=== PATIENT | male | born 1970 | race Caucasian/White ===

== ENCOUNTER 2023-11-27 10:57 | Outpatient (CLI) | payer OTHER, SELFPAY ==
--- NOTE | 2023-11-27 11:41 | ECG_ITS ---
Measurements Intervals [place] Rate: 65 P: 13 MN: 183 QRS: -1 QRSD: 107 T: -6 QT: 400 QTc: 419 Interpretive Statements SINUS RHYTHM POSSIBLE INFERIOR MYOCARDIAL INFARCTION , OF INDETERMINATE AGE [30 ms Q WAVE IN II/aVF] ABNORMAL ECG NO PREVIOUS ECG AVAILABLE FOR COMPARISON Electronically Signed On 11-27-2023 11:55:28 COMMODITIES CLERK by Javier Rojas M.D.
[2023-11-27 11:51] LABS: Hematocrit 38.1 % (42.0-52.0); Hemoglobin 12.6 g/dL (14.0-18.0)
[2023-11-27 12:00] LABS: Albumin Level 4.6 g/dL (3.5-5.1); Estimated Glomerular Filt Rate > 60; Glucose 95 mg/dL (65-110)
[2023-11-27 12:21] LABS: Urine Cotinine NEGATIVE
== END 2023-11-27 10:58 | disposition home or self-care (01) ==
PROVIDERS: Visit Provider Orthopaedic Surgery
DX: E78.5 Hyperlipidemia, unspecified (principal); M17.11 Unilateral primary osteoarthritis, right knee; I10 Essential (primary) hypertension; R94.31 Abnormal electrocardiogram [ECG] [EKG]
CPT/HCPCS: 80307; 82040; 82565; 82947; 85014; 85018; 93005

== ENCOUNTER 2024-02-05 09:55 | Outpatient (CLI) | payer OTHER, SELFPAY ==
[2024-02-05 11:48] LABS: Basophils Absolute Auto 0.1 K/mm3 (0.0-0.1); Basophils Percent Auto 0.5 % (0.2-1.2); Eosinophils Absolute Auto 0.2 K/mm3 (0-0.3); Eosinophils Percent Auto 2.2 % (0-4.4); Hemoglobin 13.5 g/dL (14.0-18.0); Immature Granulocyte Absolute 0.04 K/mm3 (0.00-0.031); Immature Granulocyte Percent A 0.4 % (0-0.5); Lymphocytes Percent Auto 10.9 % (18.3-44.2); Mean Corpuscular HGB Conc 32.9 g/dl (32-36); Mean Corpuscular Hemoglobin 29.7 pg (26-34); Mean Corpuscular Volume 90.1 fl (80-100); Mean Platelet Volume 9.8 fl (7.4-10.4); Monocytes Absolute Auto 0.7 K/mm3 (0.1-0.6); Monocytes Percent Auto 7.6 % (2.6-8.5); Neutrophils Absolute Auto 7.2 K/mm3 (1.3-6.7); Neutrophils Percent Auto 78.4 % (45.5-73.1); Platelet Count Result 256 k/mm3 (150-375); Red Blood Count 4.55 M/mm3 (4.6-6.20); Red Cell Distribution Width 15.8 % (11.5-14.5); White Blood Count 9.2 K/mm3 (4.5-10.0)
[2024-02-05 12:06] LABS: Urine Cotinine NEGATIVE
[2024-02-05 12:07] LABS: Anion Gap 7 mmol/L (4-12); Blood Urea Nitrogen 24 mg/dL (9-20); Carbon Dioxide 26 mmol/L (22-30); Chloride 105 mmol/L (98-107); Estimated Glomerular Filt Rate > 60; Glucose 116 mg/dL (65-110); Potassium 4.2 mmol/L (3.4-5.0); Sodium 138 mmol/L (137-145)
[2024-02-05 12:21] LABS: Hemoglobin A1C 5.7 % (<5.7)
[2024-02-05 12:57] LABS: MRSA (PCR) NOT DETECTED (NOT DETECTE)
== END 2024-02-05 09:56 | disposition home or self-care (01) ==
PROVIDERS: Anesthesiology; Visit Provider Orthopaedic Surgery
DX: M17.11 Unilateral primary osteoarthritis, right knee (principal); Z51.81 Encounter for therapeutic drug level monitoring; Z01.818 Encounter for other preprocedural examination
CPT/HCPCS: 36415; 80048; 80307; 82040; 83036; 85025; 87641

== ENCOUNTER 2024-03-05 01:03 | Day surgery (SDC) | payer OTHER, SELFPAY ==
[2024-02-05 10:38] VITALS: BP 128/74; PULSE 56; RESP 16; TEMP 37.1; O2SAT 98; BMI 32.3
--- NOTE | 2024-02-05 10:50 | PC.NURSE ---
Report to the Outpatient Waiting Room, entrance under the green pavilion located off [facility], at time __6:00AM on date __03/05/24 . Planned Procedure Time: __7:30AM . Time changes happen often and if your time is changed the preop area will call you the afternoon before. - You and your visitor will be asked to self-screen and do not enter if you have any COVID symptoms. - A mask is optional within the hospital at this time. Patients may have clear liquids (water, carbonated beverages, clear teas, apple juice) until 3 hours prior to surgery with a maximum of 20 ounces. - No food from midnight until time of surgery. Take the following medications with a SIP of water the morning of surgery: ___DULOXETINE, METOPROLOL, PREDNISONE. MAY TAKE TRAMADOL NEEDED FOR PAIN DO NOT STOP ANY OF YOUR OTHER PRESCRIPTION MEDICATIONS PRIOR TO SURGERY ?EXCEPT THE FOLLOWING Medications to discontinue per physician ____HOLD DICLOFENAC AND ALL VITAMINS/SUPPLEMENTS 7 DAYS PRE-OP PER DR RODRIGUEZ Date to take last dose 02/26/24 PT IS HOLDING METHOTREXATE AND TREMFYA 2 WEEKS BEFORE AND [address] RODRIGUEZ AND HIS ADJUNCT SPANISH INSTRUCTOR. Please no make-up, nail bhutanese, hairspray, perfume, deodorant, or body powder the day of surgery. No jewelry (including any body piercings) or valuables the day of surgery, leave them at home. Please take a shower or bath the night before, or the morning of, surgery with an antibacterial soap. Wear comfortable, loose fitting clothing. - Jewelry must be removed prior to entering the operating room. Rings and piercings that are not removed may be cut off. - The hospital will not accept responsibility for valuables. - Please leave all valuables, including medications, at home the day of surgery. If you are going home after surgery, a licensed delivery motorcycle driver must drive you home. - NO public transportation without another adult if you receive anesthesia. - We recommend that an adult stay with you for 24 hours following discharge. - We also recommend that you do not drive, make important decision, drink alcoholic beverages, or take any drugs that were not prescribed by your health care provider for at least 24 hours after your discharge time. Follow any additional instructions given to you from your surgeon. If you or anyone in your household have experienced Covid symptoms in the past week, please notify your surgeon or the nurse liaison at the phone number below for possible testing. Telephone instructions given to __PATIENT & WIFE and asked if any additional questions and then verbalized understanding. Patient advised to call surgeon office or pre surgery nurse liaison [phone] if any additional questions.
[2024-03-05] VITALS (14 sets, daily range): BP systolic 100–144; BP diastolic 60–89; PULSE 58–87; RESP 12–18; TEMP 36.6–37.2; O2SAT 92–100
--- NOTE | ~2024-03-05 | XR_ITS ---
EXAMINATION: [id number] DATE: 03/05/2024 11:45 INDICATION: Right total knee arthroplasty. Postop. TECHNIQUE: 2 views of right knee on 4 radiographs were obtained. COMPARISON: None. FINDINGS: There is a total right knee arthroplasty with patellar resurfacing in anatomic alignment. N o fracture. There is gas in the knee joint and soft tissues, consistent with recent surgery. A surgic al drain is noted. Loose bodies posterior to the knee may be in a Bustillo's cyst. IMPRESSION: 1. Total right knee arthroplasty in near-anatomic alignment. Reviewed, dictated and finalized at location A.
[2024-03-05] MEDS: LACTATED RINGERS 1,000 ML 30 ML IV CONT ×2 (06:31→11:05)
[2024-03-05] MEDS: ACETAMINOPHEN 500 MG TABLET 1000 MG PO (06:31)
[2024-03-05] MEDS: TRANEXAMIC ACID 1,000MG/ISO100 1,000 MG/100 ML BAG 200 MG IVPB (06:57)
--- NOTE | 2024-03-05 07:10 | WPDHPUPDATE1 ---
History and Physical Update Update Date/Time: 03/05/24 07:10 History and Physical has been reviewed, including an updated exam of the patient. There are NO changes in the patient's condition. Risks, benefits, and alternatives have been discussed and questions answered. Patient agrees to proceed with procedure.
[2024-03-05] MEDS: ceFAZolin 2 GM/D5W 50 ML 2 GM/50 ML BAG IVPB ×3 (07:29→23:54)
--- NOTE | 2024-03-05 07:31 | WPDANESEPPF ---
Anes - Initial Pre Proc Eval Procedure: Operation Date: 03/05/24 07:30 Proposed Procedures p Right Total Knee Arthroplasty - Bari Ye MD Date/Time: 03/05/24 07:31 Surgeon: Bari Ye MD Pre Op Diagnosis: primary oa right knee Patient Data Age: 53 Gender: M Height: 1.83 m Weight: 107.2 kg Last Vital Signs Temp 98.1 F 03/05/24 06:09 Pulse 58 L 03/05/24 06:09 Resp 18 03/05/24 06:09 BP 116/63 03/05/24 06:09 Pulse Ox 100 03/05/24 06:09 O2 Del Method Room Air 03/05/24 06:09 Allergies Allergy/AdvReac Type Severity Reaction Status Date / Time No Known Allergies Allergy Verified 03/05/24 06:00 Home Medications Medication Instructions Recorded Confirmed Type amlodipine 10 mg tablet 10 mg PO QPM 09/03/22 03/05/24 History cyclobenzaprine 10 mg tablet 10 mg PO HS 09/03/22 03/05/24 History duloxetine 60 mg capsule,delayed 60 mg PO QAM 09/03/22 03/05/24 History release (Cymbalta) ezetimibe 10 mg tablet 10 mg PO DAILY 09/03/22 03/05/24 History folic acid 1 mg tablet 1 mg PO DAILY 09/03/22 03/05/24 History gabapentin 300 mg capsule 600 mg PO HS 09/03/22 03/05/24 History guselkumab 100 mg/mL subcutaneous 100 mg subcut ONCE 09/03/22 03/05/24 History auto-injector (Tremfya) hydrochlorothiazide 25 mg tablet 25 mg PO QAM 09/03/22 03/05/24 History metoprolol succinate 50 mg 50 mg PO QAM 09/03/22 03/05/24 History tablet,extended release 24 hr tramadol 100 mg capsule 100 mg PO TID 09/03/22 03/05/24 History 24h,extended release(25-75) metoprolol succinate 25 mg 25 mg PO HS 11/27/23 03/05/24 History tablet,extended release 24 hr prednisone 5 mg tablet 5 mg PO QAM 11/27/23 03/05/24 History acetaminophen 500 mg tablet 1,000 mg PO Q6H PRN Pain 02/05/24 03/05/24 History colesevelam 3.75 gram oral powder 3.75 g PO DAILY 02/05/24 03/05/24 History packet diclofenac sodium 75 mg 75 mg PO BID 02/05/24 03/05/24 History tablet,delayed release methotrexate sodium 2.5 mg tablet 12.5 mg PO DIRECTED 02/05/24 03/05/24 History sulfasalazine 500 mg 1 g PO BID 02/05/24 03/05/24 History tablet,delayed release tramadol 50 mg tablet 100 mg PO TID 02/05/24 03/05/24 History aspirin 81 mg tablet,delayed 81 mg PO BID 14 days #28 tabs 03/05/24 Rx release oxycodone-acetaminophen 5 mg-325 1 - 2 tablet PO Q4-6H PRN pain #30 03/05/24 Rx mg tablet tabs Laboratory Tests 03/05/24 06:28 Blood Type A Positive Antibody Screen Pending Patient hx anesthesia problems: none Family hx anesthesia problems: none Results Review: All pre-operative results and documents have been reviewed as part of the pre-operative evaluation. [facility] Past Medical History Medical History Broken leg (~1996) Fatigue History of stress test Hyperlipemia Hypertension Kidney stone Sleep apnea Surgical History Surgical History H/O arthroscopy of left knee H/O arthroscopy of right knee (~2020) History of appendectomy (~1997) History of spinal surgery (~2021) L-3-L-4 Family History Family History Mother Cancer Father Cancer Social History Social History Smoking status: Never smoker Alcohol intake: never Substance use: never Do You Feel Safe in your Home?: Yes Lack of Transportation: No Lack of Food: Never True Current Housing: I Have Housing Concerned About Future Housing: No Difficulty Paying Gas/Electric Bills: No Difficulty Paying for Meds: No Currently Unemployed: No Education: High School Diploma/GED Difficulty w/ Childcare or Family Care: No Living arrangements: with family Additional living arrangements comments: Spiritual care concerns: No Anes - Eval Final PreProcedure Day
--- NOTE | 2024-03-05 07:38 | WPDANESPNB ---
Anes - Peripheral Nerve Block Date/Time: 03/05/24 07:38 I have discussed with the patient/family/POA the placement of a peripheral nerve block for post-operative pain management, including associated risks, benefits, complications, and side effects. Alternative methods of post-operative analgesia were detailed. Questions were solicited and answers provided to the satisfaction of the patient/family/POA. Time-Out: A pre-procedural Time-Out was completed immediately before starting the procedure and confirmed: Patient Identification, Site, Procedure, Patient Position and the Availability of Requisite Equipment. Clinical Indications: Acute post-operative pain management requested by the operative surgeon. Nerve Block Insertion Note Anes-nerve block: adductor canal right Patient position: supine Skin prep: chlorhexidine Needle: 22 gauge, stimulating, insulated echogenic needle. Needle length: 80 mm Technique: ultrasound Injectate: other (Bupiv 0.5% 15 mls. ) Observations: tolerated well Complications: none Procedure start time:: 720 Procedure end time:: 725
[2024-03-05] MEDS: SODIUM CHLORIDE 0.9% IV 37.7 ML, MORPHINE SULFATE INJ (*CRX) 2 MG, ROPivacaine HCL 1% 2... INFILTRATE (08:19)
--- NOTE | 2024-03-05 11:47 | W.PM.PROC2 ---
Procedure Note - Detailed Date of Procedure 03/05/24 Pre-op Diagnosis primary oa right knee Post-op Diagnosis Same Procedure Performed Total knee arthroplasty, right Surgeon Bari Ye MD Web Knitter Angelica Ely PA-C Anesthesia General and Regional (subsartorial block) Findings End-stage arthritis of the knee. History of rheumatoid arthritis. Severe varus deformity, subluxation, and medial tibial erosion required complex reconstruction. 10 mm medial tibial augment. 100 mm cemented stem on the tibia. The MCL was intact. Description of Procedure The patient was given a nerve block preoperatively, and then brought to the operating room. A general anesthetic was administered. The leg was prepped and draped in the usual sterile fashion. The limb was elevated and the tourniquet inflated to 300 mmHg during the procedure. A longitudinal incision was created along the medial border of the patella and patellar tendon, and a trivector approach to the knee was performed. No significant medial release was taken, in order to protect the medial soft tissue sleeve. The knee was then flexed. There were extensive osteophytes and proliferative synovitis changes. The synovium was rather stiff and there was some calcifications. Synovectomy was performed where necessary. The osteophytes were carefully removed. The femur was significantly deformed. Also the medial tibia was eroded has observed on the x-rays. The intramedullary guide was placed in the femoral canal. The distal femoral resection was then taken with the oscillating saw. The collateral ligaments were carefully protected. The tibia was carefully exposed. The intramedullary guide was introduced. Preliminary bone resection was taken. Two more mm was required. A 10 mm step cut was placed medially. The knee was balanced in extension. No further releases were were needed. The anterior cruciate ligament and meniscal remnants were removed. The posterior cruciate ligament was sacrificed. The patella was measured. Patellar resection was carried out with the oscillating saw. The femur was sized and rotation assessed using a combination of gap balancing, posterior referencing, and the AP axis. No changes from the standard 3 degree rotation and posterior referencing position were required. The 4 in 1 cutting block, and the box cut guide were used to finish the femoral cuts after equal gaps were assured. The osteophytes were carefully removed from the back of the knee. The knee was copiously irrigated with antibiotic solution periodically throughout the procedure. The meniscal remnants were removed. The spacer block was used to confirm equal flexion and extension gaps. The tibia was sized and broached. Central drilling for the stem was performed. The bony surfaces were prepared for cementing with pulsatile lavage. The real tibia, femur and patella components were cemented. Excess cement was carefully removed. Patellar tracking was carefully assessed. No additional releases were required. The wound was closed with #1 Vicryl suture, #1, 2-0, and 3-0 barbed suture followed by Steri-Strips. Due to the significant synovectomy, it was elected to place a deep drain. The [employer] bipolar device was used periodically throughout the procedure. Implants [employer] Triathlon knee system, Crosby base plate cemented tibia size 6, 10 mm medial augment. 100 mm cemented 12 mm diameter stem. Posterior cruciate stabilized cemented femoral component size 6 ,and an 9 mm posterior stabilized polyethylene insert. 35mm polyethylene patella component. Estimated Blood Loss 50 Drains No Pathology None sent Complications No immediate complications Condition Stable Disposition PACU [facility] Billing Surgery - Charge Forward: Surgery Billing
[2024-03-05] MEDS: fentaNYL CITRATE INJ (*CRX) 100 MCG/2 ML VIAL 25 MCG IV PUSH (12:10)
[2024-03-05] MEDS: ACETAMINOPHEN 325 MG TABLET 650 MG PO ×3 (12:47→23:53)
[2024-03-05] MEDS: SODIUM CHLORIDE 0.9% IV 1,000 ML 125 ML IV CONT (12:50)
--- NOTE | 2024-03-05 13:01 | ADMGEN ---
This patient, Boston Boyd, was admitted to 3 [facility] Surg Room 313-01. Patient/family oriented to hospital policies and general routines including ID bracelet, bed and alarms, visiting hours, pain management, procedures, bathroom and other care routines, personal items, smoking policy, room service/diet, and visiting hours. Information on how to activate the Rapid Response Team has been discussed. Patient/Family are encouraged to report perceived risks to care and to ask questions if they do not understand what they are told or what they should do.
[2024-03-05] MEDS: SENNA/DOCUSATE SODIUM TABLET 2 TAB PO (16:54)
[2024-03-05] MEDS: traMADol HCL (*CRX) 50 MG TABLET PO (17:01)
[2024-03-05] MEDS: amLODIPine BESYLATE 5 MG TABLET 10 MG PO (17:01)
[2024-03-05] MEDS: oxyCODONE/ACETAMINOPHEN (*CRX) 10-325 MG TABLET 1 TAB PO (18:46)
[2024-03-05] MEDS: FAMOTIDINE 20 MG TABLET PO (20:08)
[2024-03-05] MEDS: ASPIRIN 81 MG ENTERIC TABLET PO (20:08)
[2024-03-05] MEDS: METOPROLOL SUCCINATE EXT REL 25 MG TABCR PO (20:08)
[2024-03-05] MEDS: GABAPENTIN 300 MG CAPSULE 600 MG PO (20:14)
[2024-03-05] MEDS: CYCLOBENZAPRINE HCL 10 MG TABLET PO (20:14)
[2024-03-06] MEDS: oxyCODONE/ACETAMINOPHEN (*CRX) 5-325 MG TABLET 1 TABLET PO ×2 (00:27→06:46)
[2024-03-06 00:40] VITALS: BP 129/66; PULSE 64; RESP 16; TEMP 36.8; O2SAT 97
[2024-03-06] MEDS: ACETAMINOPHEN 325 MG TABLET 650 MG PO ×2 (05:16→12:41)
[2024-03-06 05:57] VITALS: BP 129/71; PULSE 59; RESP 16; TEMP 36.1; O2SAT 100
[2024-03-06 06:32] LABS: Anion Gap 4 mmol/L (4-12); Blood Urea Nitrogen 17 mg/dL (9-20); Calcium 8.8 mg/dL (8.4-10.2); Carbon Dioxide 30 mmol/L (22-30); Chloride 105 mmol/L (98-107); Estimated CRCL calculation 115 ml/min; Estimated Glomerular Filt Rate > 60; Glucose 123 mg/dL (65-110); Potassium 3.9 mmol/L (3.4-5.0); Sodium 139 mmol/L (137-145)
[2024-03-06 06:33] LABS: Basophils Percent Auto 0.3 % (0.2-1.2); Eosinophils Absolute Auto 0.1 K/mm3 (0-0.3); Eosinophils Percent Auto 0.5 % (0-4.4); Hematocrit 34.5 % (42.0-52.0); Hemoglobin 11.2 g/dL (14.0-18.0); Immature Granulocyte Absolute 0.06 K/mm3 (0.00-0.031); Immature Granulocyte Percent A 0.5 % (0-0.5); Lymphocytes Absolute Auto 1.58 K/mm3 (0.9-3.2); Lymphocytes Percent Auto 12.7 % (18.3-44.2); Mean Corpuscular HGB Conc 32.5 g/dl (32-36); Mean Corpuscular Volume 92.5 fl (80-100); Mean Platelet Volume 10.4 fl (7.4-10.4); Monocytes Absolute Auto 1.6 K/mm3 (0.1-0.6); Monocytes Percent Auto 12.5 % (2.6-8.5); Neutrophils Absolute Auto 9.1 K/mm3 (1.3-6.7); Neutrophils Percent Auto 73.5 % (45.5-73.1); Platelet Count Result 215 k/mm3 (150-375); Red Blood Count 3.73 M/mm3 (4.6-6.20); White Blood Count 12.4 K/mm3 (4.5-10.0)
--- NOTE | 2024-03-06 09:05 | PM.DS ---
DS: Admitting Diagnosis Discharge Date 03/06/24 Admitting Diagnosis Right knee arthritis. DS: Discharge Diagnosis Discharge Diagnosis (1) Status post total right knee replacement: Code(s): Z96.651 - Presence of right artificial knee joint Status: Acute (2) Orthopedic aftercare for joint replacement: Code(s): Z47.1 - Aftercare following joint replacement surgery Status: Acute Plan Postop day 1: Right total knee arthroplasty. Patient tolerated procedure well. No complications. Significant synovitis and hypertrophic tissues. Drain was placed. Drain has been removed. Pain manageable with pain medication. No numbness or tingling. We had a lengthy discussion regarding postoperative wound care, limitations, expectations, and exercises. Patient shows good understanding. He has had initial physical therapy and is tolerating it well. DVT prophylaxis: 81 mg baby aspirin b.i.d. for 14 days. Pain medication: Percocet. Antibiotic: Keflex. Patient has followup appointment with Dr. Ye in 3 weeks. DS: Summary Hospital Course Reason for hospitalization: Total knee arthroplasty Hospital Course: Patient tolerated procedure well. Has had initial PT/OT. No complications. Pain well managed. Status at Discharge Functional status at discharge: uses cane/walker Overall status at discharge: patient is progressing back to baseline Time Spent with Patient Time attestation: Total time spent providing and/or coordinating discharge services: Exam Narrative: Overweight 53 y/o Male. Resting comfortably in chair. No acute distress. A&O x3. Wearing compression socks bilaterally. Dressing intact with no drainage. Drain in place at the time of my visit. Will be removed this AM. Moderate swelling. No ecchymosis. No erythema. No hematoma. Good early range of motion. Calf nontender. Quad fires. Neurologic status intact. No varicosities. Distal pulses palpable. DS: Data Data Completed and Pending Labs on day of discharge: Labs from last 24 hours 03/06/24 05:52 WBC 12.4 H RBC 3.73 L Hgb 11.2 L Hct 34.5 L MCV 92.5 MCH 30.0 MCHC 32.5 RDW 14.0 Plt Count 215 MPV 10.4 Immature Gran % (Auto) 0.5 Neut % (Auto) 73.5 H Lymph % (Auto) 12.7 L [place] % (Auto) 12.5 H Eos % (Auto) 0.5 Baso % (Auto) 0.3 Lymph # (Auto) 1.58 [place] # (Auto) 1.6 H Eos # (Auto) 0.1 Baso # (Auto) 0.0 Abs Immat Gran (auto) 0.06 H Absolute Neuts (auto) 9.1 H Absolute Nucleated RBC 0.000 Nucleated RBC % 0.0 Sodium 139 Potassium 3.9 Chloride 105 Carbon Dioxide 30 Anion Gap 4 BUN 17 Creatinine 0.80 Estim Creat Clear Calc 115 Estimated GFR > 60 Glucose 123 H Calcium 8.8 Discharge Plan Discharge Patient Disposition: Home, Self-Care Discharge Instructions: See green instruction sheets Stand Alone Forms: General Discharge Instructions Follow-up/Referrals: Angelica Ely PA [Physician Administrative Associate] - Discharge Medications: New aspirin 81 mg tablet,delayed release (DR/EC) 81 mg PO BID 14 Days Qty: 28 0RF oxycodone-acetaminophen 5-325 mg tablet 1 - 2 tablet PO Q4-6H MDD 6 PRN (Reason: pain) Qty: 30 0RF cephalexin 500 mg capsule 500 mg PO TID 14 Days Qty: 42 0RF Continued Tremfya 100 mg/mL auto-injector 100 mg subcut ONCE Rx Instructions: TAKES EVERY 2 MONTHS. HOLDING 2 WEEKS BEFORE AND 2 WEEKS AFTER RTKA folic acid 1 mg tablet 1 mg PO DAILY duloxetine [Cymbalta] 60 mg capsule,delayed release(DR/EC) 60 mg PO QAM tramadol 100 mg capsule,ER biphase 24 hr 25-75 100 mg PO TID gabapentin 300 mg capsule 600 mg PO HS cyclobenzaprine 10 mg tablet 10 mg PO HS ezetimibe 10 mg tablet 10 mg PO DAILY amlodipine 10 mg tablet 10 mg PO QPM metoprolol succinate 50 mg tablet extended release 24 hr 50 mg PO QAM hydrochlorothiazide 25 mg tablet 25 mg PO QAM prednisone 5 mg tab
[2024-03-06] MEDS: predniSONE 5 MG TABLET PO (09:10)
[2024-03-06] MEDS: polyethylene glycoL 3350 17 GM POWD.PACK PO (09:10)
[2024-03-06] MEDS: DULoxetine HCL 60 MG CAPSULE.DR PO (09:10)
[2024-03-06] MEDS: ceFAZolin 2 GM/D5W 50 ML 2 GM/50 ML BAG IVPB (09:10)
[2024-03-06] MEDS: hydroCHLOROthiazide 25 MG TABLET PO (09:10)
[2024-03-06 09:11] VITALS: PULSE 63
[2024-03-06] MEDS: METOPROLOL SUCCINATE EXT REL 50 MG TABCR PO (09:11)
[2024-03-06] MEDS: FAMOTIDINE 20 MG TABLET PO (09:11)
[2024-03-06] MEDS: SENNA/DOCUSATE SODIUM TABLET 2 TAB PO (09:11)
[2024-03-06] MEDS: CYCLOBENZAPRINE HCL 10 MG TABLET PO (09:11)
[2024-03-06] MEDS: EZETIMIBE 10 MG TABLET PO (09:11)
[2024-03-06] MEDS: DICLOFENAC SOD 75 MG TABLET.EC PO (09:11)
[2024-03-06] MEDS: ASPIRIN 81 MG ENTERIC TABLET PO (09:11)
[2024-03-06 09:57] VITALS: BP 125/7; PULSE 66; RESP 18; TEMP 37.2; O2SAT 100
[2024-03-06] MEDS: oxyCODONE/ACETAMINOPHEN (*CRX) 10-325 MG TABLET 1 TAB PO (10:34)
--- NOTE | 2024-03-06 12:56 | P.PNAN_ITS ---
Anes - Prog Note Post-Op Date/Time: 03/06/24 12:56 Cardiovascular status: normal Respiratory status: normal Airway patency: baseline Mental status: baseline Post-Op hydration status: normal Vital Signs: Last Vital Signs Temp 99.0 F 03/06/24 09:57 Pulse 66 03/06/24 09:57 Resp 18 03/06/24 09:57 BP 125/7 L 03/06/24 09:57 Pulse Ox 100 03/06/24 09:57 O2 Del Method Room Air 03/06/24 09:10 O2 Flow Rate 2 03/05/24 12:00 Pain Score (VAS): 0/10 I/O: Intake & Output 03/05/24 03/06/24 03/06/24 23:59 07:59 15:59 Intake Total 290 250 594 Output Total 420 240 Balance -130 10 594 Laboratory Tests 03/06/24 05:52 03/06/24 05:52 03/06/24 05:52 WBC 12.4 H RBC 3.73 L Hgb 11.2 L Hct 34.5 L MCV 92.5 MCH 30.0 MCHC 32.5 RDW 14.0 Plt Count 215 MPV 10.4 Immature Gran % (Auto) 0.5 Neut % (Auto) 73.5 H Lymph % (Auto) 12.7 L [place] % (Auto) 12.5 H Eos % (Auto) 0.5 Baso % (Auto) 0.3 Lymph # (Auto) 1.58 [place] # (Auto) 1.6 H Eos # (Auto) 0.1 Baso # (Auto) 0.0 Abs Immat Gran (auto) 0.06 H Absolute Neuts (auto) 9.1 H Absolute Nucleated RBC 0.000 Nucleated RBC % 0.0 Sodium 139 Potassium 3.9 Chloride 105 Carbon Dioxide 30 Anion Gap 4 BUN 17 Creatinine 0.80 Estim Creat Clear Calc 115 Estimated GFR > 60 Glucose 123 H Calcium 8.8 Post-procedural complaints: none Patient Feedback: Patient satisfied with anesthetic care.
== END 2024-03-06 13:10 | disposition home or self-care (01) ==
LOC: ANHSURGERY 07:25 → ANH3MEDSUR 12:14
PROVIDERS: Physician Assistant Surgical; Visit Provider Orthopaedic Surgery
PROC: (CPT 27447; principal; 2024-03-05 07:30)
DX: M17.11 Unilateral primary osteoarthritis, right knee (principal); M25.761 Osteophyte, right knee; M21.161 Varus deformity, not elsewhere classified, right knee; I10 Essential (primary) hypertension; E78.5 Hyperlipidemia, unspecified; G47.30 Sleep apnea, unspecified; G89.18 Other acute postprocedural pain; E66.9 Obesity, unspecified; Z68.32 Body mass index [BMI] 32.0-32.9, adult; Z79.891 Long term (current) use of opiate analgesic; Z79.52 Long term (current) use of systemic steroids; Z98.890 Other specified postprocedural states; Z98.1 Arthrodesis status; Z96.653 Presence of artificial knee joint, bilateral; Z80.9 Family history of malignant neoplasm, unspecified
CPT/HCPCS: 27447; 64447; 36415; 73560; 80048; 80307; 82040; 83036; 85025; 86850; 86900; 86901; 87641; 97110; 97116; 97161; 97165; 97530; 97535; A9270; C1713; C1776; J0171; J0690; J1100; J1170; J1596; J1885; J2250; J2270; J2405; J2704; J2795; J3010; J7030; J7120; J7512

== ENCOUNTER 2024-07-08 11:19 | Outpatient (CLI) | payer OTHER, SELFPAY ==
[2024-07-08 12:04] LABS: Basophils Absolute Auto 0.1 K/mm3 (0.0-0.1); Basophils Percent Auto 0.8 % (0.2-1.2); Eosinophils Absolute Auto 0.3 K/mm3 (0-0.3); Eosinophils Percent Auto 3.6 % (0-4.4); Hematocrit 38.4 % (42.0-52.0); Hemoglobin 12.8 g/dL (14.0-18.0); Immature Granulocyte Absolute 0.02 K/mm3 (0.00-0.031); Immature Granulocyte Percent A 0.2 % (0-0.5); Lymphocytes Absolute Auto 1.02 K/mm3 (0.9-3.2); Lymphocytes Percent Auto 12.1 % (18.3-44.2); Mean Corpuscular HGB Conc 33.3 g/dl (32-36); Mean Corpuscular Hemoglobin 29.8 pg (26-34); Mean Corpuscular Volume 89.3 fl (80-100); Mean Platelet Volume 10.3 fl (7.4-10.4); Monocytes Absolute Auto 0.7 K/mm3 (0.1-0.6); Monocytes Percent Auto 8.5 % (2.6-8.5); Neutrophils Absolute Auto 6.3 K/mm3 (1.3-6.7); Neutrophils Percent Auto 74.8 % (45.5-73.1); Platelet Count Result 266 k/mm3 (150-375); Red Cell Distribution Width 14.4 % (11.5-14.5); White Blood Count 8.4 K/mm3 (4.5-10.0)
[2024-07-08 12:11] LABS: Albumin Level 4.6 g/dL (3.5-5.1)
[2024-07-08 12:13] LABS: Anion Gap 12 mmol/L (4-12); Blood Urea Nitrogen 26 mg/dL (9-20); Calcium 9.1 mg/dL (8.4-10.2); Carbon Dioxide 26 mmol/L (22-30); Chloride 100 mmol/L (98-107); Estimated Glomerular Filt Rate > 60; Glucose 164 mg/dL (65-110); Potassium 3.8 mmol/L (3.4-5.0); Sodium 138 mmol/L (137-145)
[2024-07-08 12:22] LABS: Urine Cotinine NEGATIVE
[2024-07-08 13:22] LABS: Hemoglobin A1C 6.7 % (<5.7)
[2024-07-08 13:24] LABS: MRSA (PCR) NOT DETECTED (NOT DETECTE)
== END 2024-07-08 11:20 | disposition home or self-care (01) ==
LOC: ANHSURGERY 11:27
PROVIDERS: Anesthesiology; Visit Provider Orthopaedic Surgery
DX: Z01.818 Encounter for other preprocedural examination (principal); M17.12 Unilateral primary osteoarthritis, left knee; Z51.81 Encounter for therapeutic drug level monitoring
CPT/HCPCS: 36415; 80048; 80307; 82040; 83036; 85025; 86850; 86900; 86901; 87641

== ENCOUNTER 2024-07-14 01:34 | Day surgery (SDC) | payer OTHER, SELFPAY ==
[2024-07-07 14:55] VITALS: BMI 32.3
--- NOTE | 2024-07-07 15:08 | PC.NURSE ---
Report to the Outpatient Waiting Room, entrance under the green pavilion located off [facility], at time __06:00am___on date _07/14/24 . Planned Procedure Time: __07:30am .? Time changes happen often and if your time is changed the preop area will call you the afternoon before. - You and your visitor will be asked to self-screen and do not enter if you have any COVID symptoms. Please call surgeon if you need to reschedule. - A mask is optional within the hospital at this time. Patients may have clear liquids (water, carbonated beverages, clear teas, apple juice) until 3 hours prior to surgery with a maximum of 20 ounces. - No food from midnight until time of surgery and no smoking Take only the following medications with a SIP of water on the morning of surgery: _Amlodipine, Metoprolol, Tramadol and Cyclobenzaprine if needed. DO NOT STOP ANY OF YOUR OTHER PRESCRIPTION MEDICATIONS PRIOR TO SURGERY EXCEPT THE FOLLOWING Medications to discontinue per physician ____HOLD Diclofenac for [address] Ye Date to take last dose___07/13/24. Hold all vitamins and supplements for 3 days prior to surgery per Anesthesia, Date to take last dose is 07/13/24. Pt to hold his Psoriatic arthritis meds for two weeks before surgery and for two weeks after- pt voiced this and has stopped them. Please no make-up, nail bruneian, hairspray, perfume, deodorant, or body powder the day of surgery.? No jewelry (including any body piercings) or valuables the day of surgery, leave them at home.? Please take a shower or bath the night before, or the morning of, surgery with an antibacterial soap.? Wear comfortable, loose fitting clothing.? - Jewelry must be removed prior to entering the operating room.? Rings and piercings that are not removed may be cut off. - The hospital will not accept responsibility for valuables.? - Please leave all valuables, including medications, at home the day of surgery. If you are going home after surgery, a licensed dolly driver must drive you home.? - NO public transportation without another adult if you receive anesthesia. - We recommend that an adult stay with you for 24 hours following discharge. - We also recommend that you do not drive, make important decision, drink alcoholic beverages, or take any drugs that were not prescribed by your health care provider for at least 24 hours after your discharge time. Follow any additional instructions given to you from your surgeon. Telephone instructions given to __patient and asked if any additional questions and then verbalized understanding. Patient advised to call surgeon office or pre surgery nurse liaison [phone] if any additional questions.
--- NOTE | 2024-07-13 13:15 | WPDANESEPPF ---
Anes - Initial Pre Proc Eval Procedure: Operation Date: 07/14/24 07:30 Proposed Procedures p Left Total Knee Arthroplasty - Bari Ye MD Date/Time: 07/13/24 13:15 Surgeon: Bari Ye MD Pre Op Diagnosis: primary OA left knee Patient Data Age: 53 Gender: M Height: 1.83 m Weight: 108 kg Allergies Allergy/AdvReac Type Severity Reaction Status Date / Time No Known Allergies Allergy Verified 07/07/24 14:46 Home Medications Medication Instructions Recorded Confirmed Type amlodipine 10 mg tablet 10 mg PO QPM 09/03/22 07/07/24 History duloxetine 60 mg capsule,delayed 60 mg PO QAM 09/03/22 07/07/24 History release (Cymbalta) ezetimibe 10 mg tablet 10 mg PO DAILY 09/03/22 07/07/24 History folic acid 1 mg tablet 1 mg PO DAILY 09/03/22 07/07/24 History gabapentin 300 mg capsule 600 mg PO HS 09/03/22 07/07/24 History guselkumab 100 mg/mL subcutaneous 100 mg subcut ONCE 09/03/22 07/07/24 History auto-injector (Tremfya) hydrochlorothiazide 25 mg tablet 25 mg PO QAM 09/03/22 07/07/24 History metoprolol succinate 50 mg 50 mg PO QAM 09/03/22 07/07/24 History tablet,extended release 24 hr tramadol 100 mg capsule 100 mg PO TID 09/03/22 07/07/24 History 24h,extended release(25-75) metoprolol succinate 25 mg 25 mg PO HS 11/27/23 07/07/24 History tablet,extended release 24 hr colesevelam 3.75 gram oral powder 3.75 g PO DAILY 02/05/24 07/07/24 History packet diclofenac sodium 75 mg 75 mg PO BID 02/05/24 07/07/24 History tablet,delayed release methotrexate sodium 2.5 mg tablet 12.5 mg PO DIRECTED 02/05/24 07/07/24 History omeprazole 20 mg capsule,delayed 20 mg PO DAILY 06/29/24 07/07/24 History release cyclobenzaprine 10 mg tablet 10 mg PO HS 07/07/24 07/07/24 History multivitamin 1 tablet PO DAILY 07/07/24 07/07/24 History Patient hx anesthesia problems: none Family hx anesthesia problems: none Results Review: All pre-operative results and documents have been reviewed as part of the pre-operative evaluation. [facility] Past Medical History Medical History Broken leg (~1996) Fatigue History of stress test Hyperlipemia Hypertension Kidney stone Sleep apnea Surgical History Surgical History H/O arthroscopy of left knee H/O arthroscopy of right knee (~2020) History of appendectomy (~1997) History of spinal surgery (~2021) L-3-L-4 Status post total right knee replacement (~03/05/24) Family History Family History Mother Cancer Father Cancer Social History Social History Smoking status: Never smoker Alcohol intake: never Substance use: never Do You Feel Safe in your Home?: Yes Lack of Transportation: No Lack of Food: Never True Current Housing: I Have Housing Concerned About Future Housing: No Difficulty Paying Gas/Electric Bills: No Difficulty Paying for Meds: No Currently Unemployed: No Education: High School Diploma/GED Difficulty w/ Childcare or Family Care: No Living arrangements: with family Additional living arrangements comments: Spiritual care concerns: No Anes - Eval Final PreProcedure Day of Procedure 07/13/24 13:15 Patient weight: obese Heart: regular rate and rhythm Lungs: clear to auscultation Airway: Mallampati scale class II Neurological: alert and oriented Last oral intake: >/= 8 hours ASA classification: III Emergent: no Anesthetic plan: proceed Anesthesia type and monitoring: general LMA and standard monitoring Results Review: All pre-operative results and documents have been reviewed as part of the pre-operative evaluation. Informed Consent: The patient's anesthetic plan and its attendant risks and benefits were discussed with the patient/family/POA. Questions were solicited and
[2024-07-14] VITALS (15 sets, daily range): BP systolic 93–135; BP diastolic 58–80; PULSE 51–84; RESP 12–18; TEMP 35.7–37.2; O2SAT 91–99
--- NOTE | ~2024-07-14 | XR_ITS ---
EXAMINATION: [id number] DATE: 07/14/2024 11:03 INDICATION: Postoperative evaluation following left total knee arthroplasty. TECHNIQUE: Anteroposterior and lateral views of the left knee were obtained. COMPARISON: None. FINDINGS: Left total knee arthroplasty with patellar resurfacing appears well seated and in near anatomic align ment. Old healed fracture deformity at the proximal left fibular diaphysis. No acute fractures identi fied. Expected postoperative subcutaneous and intra-articular gas. IMPRESSION: 1. Left total knee arthroplasty, negative for postoperative purposes. Reviewed, dictated and finalized at location A.
[2024-07-14] MEDS: LACTATED RINGERS 1,000 ML 30 ML IV CONT ×2 (06:30→10:45)
[2024-07-14] MEDS: TRANEXAMIC ACID 1,000MG/ISO100 1,000 MG/100 ML BAG 200 MG IVPB (06:30)
[2024-07-14] MEDS: ACETAMINOPHEN 500 MG TABLET 1000 MG PO (06:30)
--- NOTE | 2024-07-14 07:12 | WPDHPUPDATE1 ---
History and Physical Update Update Date/Time: 07/14/24 07:12 History and Physical has been reviewed, including an updated exam of the patient. There are NO changes in the patient's condition. Risks, benefits, and alternatives have been discussed and questions answered. Patient agrees to proceed with procedure.
[2024-07-14] MEDS: ceFAZolin 2 GM/D5W 50 ML 2 GM/50 ML BAG IVPB ×3 (08:01→23:39)
[2024-07-14] MEDS: SODIUM CHLORIDE 0.9% IV 37.7 ML, MORPHINE SULFATE INJ (*CRX) 2 MG, ROPivacaine HCL 1% 2... INFILTRATE (08:11)
[2024-07-14] MEDS: VANCOMYCIN HCL 1,000 MG VIAL 1000 MG TOPICAL (09:44)
[2024-07-14] MEDS: TRANEXAMIC ACID 1,000 MG/10 ML AMPUL 1000 MG IV PUSH (10:07)
--- NOTE | 2024-07-14 11:29 | W.PM.PROC2 ---
Procedure Note - Detailed Date of Procedure 07/14/24 Pre-op Diagnosis Degenerative arthritis left knee. Rheumatoid arthritis. Post-op Diagnosis Same Procedure Performed Total knee arthroplasty, left knee. Surgeon Bari Ye MD Nylon Machine Operator Angelica Ely PA-C Anesthesia General and Regional (subsartorial block) Findings End-stage arthritis of the knee. History of rheumatoid arthritis. Severe varus deformity, subluxation, and medial tibial erosion required complex reconstruction. 5 mm medial tibial augment. 100 mm cemented stem on the tibia. The MCL was intact. Similar findings to contralateral knee. Description of Procedure The patient was given a nerve block preoperatively, and then brought to the operating room. A general anesthetic was administered. The leg was prepped and draped in the usual sterile fashion. The limb was elevated and the tourniquet inflated to 300 mmHg during the procedure. A longitudinal incision was created along the medial border of the patella and patellar tendon, and a trivector approach to the knee was performed. No significant medial release was taken, in order to protect the medial soft tissue sleeve. The knee was then flexed. There were extensive osteophytes and moderate proliferative synovitis changes. The osteophytes were carefully removed. The femur was significantly deformed. Also the medial tibia was eroded has observed on the x-rays. The intramedullary guide was placed in the femoral canal. The distal femoral resection was then taken with the oscillating saw. The collateral ligaments were carefully protected. The tibia was carefully exposed. The intramedullary guide was introduced. Preliminary bone resection was taken. Two more mm was required. A 5 mm step cut was placed medially. The knee was balanced in extension. Increased medial release was required. The anterior cruciate, posterior cruciate and meniscal remnants were removed. The patella was measured. Patellar resection was carried out with the oscillating saw. The femur was sized and rotation assessed using a combination of gap balancing, posterior referencing, and the AP axis. No changes from the standard 3 degree rotation and posterior referencing position were required. The 4 in 1 cutting block, and the box cut guide were used to finish the femoral cuts after equal gaps were assured. The osteophytes were carefully removed from the back of the knee. The knee was copiously irrigated with antibiotic solution periodically throughout the procedure. The meniscal remnants were removed. The spacer block was used to confirm equal flexion and extension gaps. The tibia was sized and broached. Central drilling for the stem was performed. The bony surfaces were prepared for cementing with pulsatile lavage. The real tibia, femur and patella components were cemented. Excess cement was carefully removed. Patellar tracking was carefully assessed. No additional releases were required. The wound was closed with #1 Vicryl suture, #1, 2-0, and 3-0 barbed suture followed by Steri-Strips. The [employer] bipolar device was used periodically throughout the procedure. Implants Iconfinder Triathlon knee system, [place] base plate cemented tibia size 6, 5 mm medial augment. 100 mm cemented 12 mm diameter stem. Posterior cruciate stabilized cemented femoral component size 6 , and an 11 mm posterior stabilized polyethylene X3 insert. 35mm polyethylene patella component. Estimated Blood Loss 150 Drains No Pathology None sent Complications No immediate complications Condition Stable Disposition PACU [facility] Billing Surgery - Charge Forward: Surgery Billing
--- NOTE | 2024-07-14 12:23 | ADMGEN ---
This patient, Boston Boyd, was admitted to [facility] Surg Room 301-01. Patient/family oriented to hospital policies and general routines including ID bracelet, bed and alarms, visiting hours, pain management, procedures, bathroom and other care routines, personal items, smoking policy, room service/diet, and visiting hours. Information on how to activate the Rapid Response Team has been discussed. Patient/Family are encouraged to report perceived risks to care and to ask questions if they do not understand what they are told or what they should do.
[2024-07-14] MEDS: oxyCODONE/ACETAMINOPHEN (*CRX) 10-325 MG TABLET 1 TAB PO ×2 (15:06→21:21)
[2024-07-14] MEDS: SENNA/DOCUSATE SODIUM TABLET 2 TAB PO (17:07)
[2024-07-14] MEDS: amLODIPine BESYLATE 10 MG TABLET PO (17:07)
[2024-07-14] MEDS: ACETAMINOPHEN 325 MG TABLET 650 MG PO ×2 (17:08→23:35)
[2024-07-14] MEDS: DICLOFENAC SOD 75 MG TABLET.EC PO (17:08)
[2024-07-14] MEDS: FAMOTIDINE 20 MG TABLET PO (20:10)
[2024-07-14] MEDS: GABAPENTIN 300 MG CAPSULE 600 MG PO (20:10)
[2024-07-14] MEDS: ASPIRIN 81 MG ENTERIC TABLET PO (20:10)
[2024-07-14] MEDS: METOPROLOL SUCCINATE EXT REL 25 MG TABCR PO (20:10)
[2024-07-15 03:28] VITALS: BP 104/63; PULSE 57; RESP 16; TEMP 36.6; O2SAT 100
[2024-07-15] MEDS: ACETAMINOPHEN 325 MG TABLET 650 MG PO (05:49)
[2024-07-15] MEDS: oxyCODONE/ACETAMINOPHEN (*CRX) 10-325 MG TABLET 1 TAB PO (05:51)
[2024-07-15 06:33] LABS: Basophils Percent Auto 0.2 % (0.2-1.2); Eosinophils Percent Auto 0.1 % (0-4.4); Hematocrit 33.9 % (42.0-52.0); Hemoglobin 11.2 g/dL (14.0-18.0); Immature Granulocyte Absolute 0.05 K/mm3 (0.00-0.031); Immature Granulocyte Percent A 0.3 % (0-0.5); Lymphocytes Percent Auto 6.9 % (18.3-44.2); Mean Corpuscular Hemoglobin 29.9 pg (26-34); Mean Corpuscular Volume 90.6 fl (80-100); Mean Platelet Volume 10.2 fl (7.4-10.4); Monocytes Absolute Auto 1.8 K/mm3 (0.1-0.6); Monocytes Percent Auto 11.5 % (2.6-8.5); Neutrophils Absolute Auto 12.9 K/mm3 (1.3-6.7); Platelet Count Result 218 k/mm3 (150-375); Red Blood Count 3.74 M/mm3 (4.6-6.20); Red Cell Distribution Width 14.4 % (11.5-14.5)
[2024-07-15 06:49] LABS: Anion Gap 5 mmol/L (4-12); Blood Urea Nitrogen 21 mg/dL (9-20); Calcium 8.5 mg/dL (8.4-10.2); Carbon Dioxide 26 mmol/L (22-30); Chloride 104 mmol/L (98-107); Estimated CRCL calculation 104 ml/min; Estimated Glomerular Filt Rate > 60; Glucose 118 mg/dL (65-110); Potassium 3.9 mmol/L (3.4-5.0); Sodium 135 mmol/L (137-145)
--- NOTE | 2024-07-15 08:07 | PM.DS ---
DS: Admitting Diagnosis Discharge Date 07/15/24 Admitting Diagnosis Left knee arthritis. DS: Discharge Diagnosis Discharge Diagnosis (1) Status post total left knee replacement: Code(s): Z96.652 - Presence of left artificial knee joint Status: Acute Plan Postop day 1: Left total knee arthroplasty. Patient tolerated procedure well. No complications. Pain manageable with pain medication. No numbness or tingling. We had a lengthy discussion regarding postoperative wound care, limitations, expectations, and exercises. Patient shows good understanding. He has had initial physical therapy and is tolerating it well. DVT prophylaxis: 81 mg baby aspirin b.i.d. for 14 days. Pain medication: Percocet. Antibiotic: Keflex. Patient has followup appointment with Dr. Ye in 3 weeks. DS: Summary Hospital Course Reason for hospitalization: Total knee arthroplasty Hospital Course: Patient tolerated procedure well. Has had initial PT/OT. No complications. Pain well managed. Status at Discharge Functional status at discharge: uses cane/walker Overall status at discharge: patient is progressing back to baseline Time Spent with Patient Time attestation: Total time spent providing and/or coordinating discharge services: Exam Narrative: Overweight 53 y/o Male. Resting comfortably in chair. No acute distress. A&O x3. Wearing compression socks bilaterally. Dressing intact with no drainage. Mild swelling. No ecchymosis. No erythema. No hematoma. Good early range of motion. Calf nontender. Quad fires. Neurologic status intact. No varicosities. Distal pulses palpable. DS: Data Data Completed and Pending Labs on day of discharge: Labs from last 24 hours 07/15/24 05:58 WBC 16.0 H RBC 3.74 L Hgb 11.2 L Hct 33.9 L MCV 90.6 MCH 29.9 MCHC 33.0 RDW 14.4 Plt Count 218 MPV 10.2 Immature Gran % (Auto) 0.3 Neut % (Auto) 81.0 H Lymph % (Auto) 6.9 L [place] % (Auto) 11.5 H Eos % (Auto) 0.1 Baso % (Auto) 0.2 Lymph # (Auto) 1.10 [place] # (Auto) 1.8 H Eos # (Auto) 0.0 Baso # (Auto) 0.0 Abs Immat Gran (auto) 0.05 H Absolute Neuts (auto) 12.9 H Absolute Nucleated RBC 0.000 Nucleated RBC % 0.0 Sodium 135 L Potassium 3.9 Chloride 104 Carbon Dioxide 26 Anion Gap 5 BUN 21 H Creatinine 0.90 Estim Creat Clear Calc 104 Estimated GFR > 60 Glucose 118 H Calcium 8.5 Discharge Plan Discharge Patient Disposition: Home, Self-Care Discharge Instructions: See green instruction sheets Stand Alone Forms: General Discharge Instructions Follow-up/Referrals: Angelica Ely PA [Physician C++ Professor] - Discharge Medications: New aspirin 81 mg tablet,delayed release (DR/EC) 81 mg PO BID 14 Days Qty: 28 0RF oxycodone-acetaminophen 5-325 mg tablet 1 - 2 tablet PO Q4-6H MDD 8 PRN (Reason: pain) 7 Days Qty: 30 0RF cephalexin 500 mg capsule 500 mg PO TID 14 Days Qty: 42 0RF Continued folic acid 1 mg tablet 1 mg PO DAILY duloxetine [Cymbalta] 60 mg capsule,delayed release(DR/EC) 60 mg PO QAM gabapentin 300 mg capsule 600 mg PO HS ezetimibe 10 mg tablet 10 mg PO DAILY amlodipine 10 mg tablet 10 mg PO QPM metoprolol succinate 50 mg tablet extended release 24 hr 50 mg PO QAM hydrochlorothiazide 25 mg tablet 25 mg PO QAM omeprazole 20 mg capsule,delayed release(DR/EC) 20 mg PO DAILY metoprolol succinate 25 mg tablet extended release 24 hr 25 mg PO HS diclofenac sodium 75 mg tablet,delayed release (DR/EC) 75 mg PO BID cyclobenzaprine 10 mg tablet 10 mg PO HS multivitamin Tablet 1 tablet PO DAILY colesevelam 3.75 gram powder in packet 3.75 g PO DAILY Held Tremfya 100 mg/mL auto-injector 100 mg subcut ONCE Hold Instructions: Resume on 07/28/24. Hold for 2 weeks after surgery. Patient Comments: pt to hold 2 weeks prior to an
[2024-07-15] MEDS: ceFAZolin 2 GM/D5W 50 ML 2 GM/50 ML BAG IVPB (08:52)
[2024-07-15] MEDS: FAMOTIDINE 20 MG TABLET PO (08:54)
[2024-07-15] MEDS: PANTOPRAZOLE 40 MG TABLET PO (08:54)
[2024-07-15] MEDS: FOLIC ACID 1 MG TABLET PO (08:54)
[2024-07-15] MEDS: hydroCHLOROthiazide 25 MG TABLET PO (08:54)
[2024-07-15] MEDS: ASPIRIN 81 MG ENTERIC TABLET PO (08:54)
[2024-07-15] MEDS: DICLOFENAC SOD 75 MG TABLET.EC PO (08:54)
[2024-07-15] MEDS: MULTIVITAMINS THERAPEUTIC TAB (*BKC) 1 TABLET PO (08:54)
[2024-07-15] MEDS: SENNA/DOCUSATE SODIUM TABLET 2 TAB PO (08:54)
[2024-07-15 08:55] VITALS: PULSE 59
[2024-07-15] MEDS: EZETIMIBE 10 MG TABLET PO (08:55)
[2024-07-15] MEDS: DULoxetine HCL 60 MG CAPSULE.DR PO (08:55)
[2024-07-15] MEDS: METOPROLOL SUCCINATE EXT REL 50 MG TABCR PO (08:55)
[2024-07-15] MEDS: polyethylene glycoL 3350 17 GM POWD.PACK PO (08:55)
[2024-07-15] MEDS: HYDROmorphone HCL INJ (*CRX) 1 MG/ML SYR 0.5 MG IV PUSH (09:04)
[2024-07-15 09:39] VITALS: BP 125/67; PULSE 71; RESP 12; TEMP 36.8; O2SAT 98
== END 2024-07-15 13:00 | disposition home or self-care (01) ==
LOC: ANHSURGERY 10:51 → ANH3MEDSUR 12:19
PROVIDERS: Physician Assistant Surgical; Visit Provider Orthopaedic Surgery
PROC: (CPT 27447; principal; 2024-07-14 07:30)
DX: M17.12 Unilateral primary osteoarthritis, left knee (principal); M25.762 Osteophyte, left knee; M06.862 Other specified rheumatoid arthritis, left knee; M21.162 Varus deformity, not elsewhere classified, left knee; S83.192A Other subluxation of left knee, initial encounter; I10 Essential (primary) hypertension; E78.5 Hyperlipidemia, unspecified; G47.30 Sleep apnea, unspecified; E66.9 Obesity, unspecified; Z68.32 Body mass index [BMI] 32.0-32.9, adult; Z79.891 Long term (current) use of opiate analgesic; Z98.890 Other specified postprocedural states; Z98.1 Arthrodesis status; Z87.442 Personal history of urinary calculi; Z80.9 Family history of malignant neoplasm, unspecified; X58.XXXA Exposure to other specified factors, initial encounter
CPT/HCPCS: 27447; 36415; 73560; 80048; 80307; 82040; 83036; 85025; 86850; 86900; 86901; 87641; 97110; 97116; 97161; 97165; 97530; 97535; A9270; C1713; C1776; J0171; J0690; J1100; J1171; J1885; J2003; J2250; J2270; J2371; J2405; J2704; J2795; J3010; J3370; J7120

== ENCOUNTER 2025-07-14 13:46 | Outpatient (CLI) | payer OTHER, SELFPAY ==
--- NOTE | ~2025-07-14 | XR_ITS ---
EXAMINATION: XR knee LT 3V, 07/14/2025 13:55 CDT HISTORY: Z96.652 - Presence of left artificial knee joint COMPARISON: No comparisons available. Findings: No acute fracture or malalignment. Knee prosthesis intact Soft tissues unremarkable. Impression: No acute fracture or malalignment. Reviewed, dictated and finalized at location P. Impression: No acute fracture or malalignment.
--- NOTE | ~2025-07-14 | XR_ITS ---
EXAMINATION: XR knee RT 3V, 07/14/2025 13:55 CDT HISTORY: Z96.651 - Presence of right artificial knee joint COMPARISON: No comparisons available. Findings: No acute fracture or malalignment. Prosthesis intact Soft tissues unremarkable. Impression: No acute fracture or malalignment. Reviewed, dictated and finalized at location P. Impression: No acute fracture or malalignment.
--- OUTSIDE RECORDS SUMMARY | 2025-07-14 13:53 | XMS_ITS | Clinical Summary ---
Author Organization [facility] Address [address] [place] [address] Care Team Providers Care Customer Response Representative Name Role Phone Non-Staff, Provider Primary Care Provider Unavai lable Allergies No known active allergies Medications folic acid (FOLVITE) 1 MG tablet Take 1 mg by mouth daily. Active acetaminophen (TYLENOL) 500 MG tablet Take 1,000 mg by mouth 3 (three) times a day. Active DULoxetine (CYMBALTA) 60 MG capsule Take 60 mg by mouth daily. Active gabapentin (NEURONTIN) 300 MG capsule Take 600 mg by mouth nightly. Active Misc Natural Products (OSTEO BI-FLEX JOINT SHIELD OR) Take 1 tablet by mouth daily as needed. Active Multiple Vitamin (MULTIVITAMIN ADULT OR) Take 1 tablet by mouth daily. Active ezetimibe (ZETIA) 10 MG tablet Take 10 mg by mouth daily. Active amLODIPine (NORVASC) 10 MG tablet Take 10 mg by mouth daily. Active metoprolol succinate ER (TOPROL-XL) 50 MG 24 hr tablet Take 50 mg by mouth daily. Active hydroCHLOROthiaz tej (HYDRODIURIL) 25 MG tablet Take 25 mg by mouth every morning. Active Active Problems Problem Noted Date Diagnosed Date Spondylolisthesis 06/28/2022 Spondylolisthesis at L3-L4 level 06/26/2022 Immunizations Immunization Administration Dates Next Due MODERNA COVID-19 (12+) MRNA, LNP-S, PF, 100 MCG/ 0.5 ML DOSE 01/27/2021,12/30/2020 Social History Tobacco Use Types Packs/Day Years Used Date Smoking Tobacco: Never Smokeless Tobacco: Never Alcohol Use Standard Drinks/Week Comments Not Currently 0 (1 standard drink = 0.6 oz pur e alcohol) Sex and Gender Information Value Date Recorded Sex Assigned at Not on file Legal Sex Male 1:49 PM CDT Gender Identity Not on file Sexual Orientation Not on file Last Filed Vital Signs Vital Sign Reading Time Taken Comments Blood Pressure 124/78 06/28/2022 11:57 AM CDT Pulse 98 06/28/2022 11:57 AM CDT Temperature 36.7 C (98.1 F) 06/28/2022 2:36 PM CDT Respiratory Rate 18 06/28/2022 8:13 AM CDT Oxygen Saturation 94% 06/28/2022 11: 57 AM CDT Inhaled Oxygen Concentration - - Weight 103.4 kg (227 lb 15.3 oz) 06/26/2022 6:30 AM CDT Height 182.9 cm (6') 06/26/2022 6:30 AM CDT Body Mass Index 30.92 06/26/2022 6:30 AM CDT Plan of Treatment Health Maintenance Due Date Last Done Comments Colorectal Cancer Screening Colonoscopy (10 Years) 1968 Annual Physical 1971 Hepatitis C 1986 DTaP, Tdap and Td Vaccines ( 1 - Tdap) 1987 Hepatitis B Vaccines (1 of 3 - 19+ 3-dose series) 1987 Pneumococcal Vaccine: 50+ Years (1 of 1 - PCV) 2018 Zoster Vaccines (1 of 2) 2018 COVID-19 Vaccine (3 - 2024-2 6 season) 2025 01/27/2021, 12/30/2020 Influenza Adult (#1) 2025 Meningococcal B Vaccine Aged Out No l onger eligible based on patient's age to complete this topic Meningococcal Vaccine Aged Out No efren luan eligible based on patient's age to complete this topic RSV Immunizations Under 20 Months Aged Out No longer eligible b ased on patient's age to complete this topic Goals Goal Patient Goal Type Associated Problems Recent Progress Patient-Stated? Author Health - patient able to perform ADLs independently Lifestyle No Jennifer solis, Sebastien Bone RN Medical Devices Implanted Type Area Classified Advertising Clerk Device Identifier Shelf Expiration Date Model / Serial / Lot Orthofix 50 Mm Rods Implanted:Qty: 2 on 06/26/2022 by Leslie Cruz MD at [facility] Moses ORTHOFIX [id number] / / Orthofix Set Screw Implanted:Qty: 4 on 06/26/2022 by Leslie Cruz MD at [facility] Screw ORTHOFIX 36 / / Orthofix Top Loading Body Implanted:Qty: 4 on 06/26/2022 by Leslie Cruz MD at [facility] Screw ORTHOFIX [id number] / / Orthofix 7.5x50mm Screw Implanted:Qty: 4 on 06/26/2022 by Leslie Cruz MD at [facility] Screw ORTHOFIX [id number] / / Core Link F3d Straight [id number] 7degrees Implanted:Qty: 1 on 06/26/2022 by Leslie Cruz MD at [facility] [employer] [id number] 20 09/26/2023 [id number] / / [id number] Corelink F3d Straight [id number] Implanted:Qty: 1 on 06/26/2022 by Leslie Cruz MD at [facility] [employer] [id number] 20 02/21/2025 [id number] / / [id number] Magnetos For Predictable Fusions Implanted:Qty: 1 on 06/26/2022 by Leslie Cruz MD at [facility] [employer] 10/14/2024 [id number] / / [id number] Description:[employer] Insurance Advance Directives * Full Code (Latest Code Status on File) Date Activated Date Inactivated Comments 06/26/2022 8:42 PM 06/28/2022 6:14 PM Care Teams Customer Response Representative Relationship Specialty Start Date End Date Non-Staff, Provider PCP - General 06/26/22
--- OUTSIDE RECORDS SUMMARY | 2025-07-14 13:53 | XMS_ITS | Clinical Summary ---
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
--- OUTSIDE RECORDS SUMMARY | 2025-07-14 13:53 | XMS_ITS | Clinical Summary ---
Author Organization [facility] Address [address] [place] [address] Care Team Providers Care Ore Storage Drier Name Role Phone Unavailable Primary Care Provider Unavailabl e Source Comments [facility] [employer],non-owned Affiliates and Associated Physician Practices is amultiple site organization consisting of ambulatory clinics and hospital sitesin [place], [place], [place] and [place]. This disclosure is being madepursuant to the Care Everywhere program and may not contain all information available regarding this patient. Last updated 18.[facility] Social History Tobacco Use Types Packs/Day Years Used Date Smoking Tobacco: Never Assessed Sex and Gender Information Value Date Recorded Sex Assigned at Not on file Legal Sex Male 4:13 PM DIRECT CARE STAFFER Gender Identity Not on file Sexual Orientation Not on file Plan of Treatment Health Maintenance Due Date Last Done Comments COLOGUARD (AGES 45-75) - COL ON CA SCREENING 1968 COLON MONITORING 1968 COLONOSCOPY - COLON CA SCREENING 1968 CT COLONOGRAPHY - COLON CA SCREENING 1968 Colorectal Cancer Screening 1968 FIT - COLON CA SCREENING 1968 FLEX SIG - COLON CA SCREENING 1968 LIPID TESTING 1968 HIV SCREENING 1983 HEPATITIS C SCREENING 08/28/1986 DTAP/TDAP/TD VACCINES (1 - Tdap) 1987 HEPATITIS B VACCINE (1 of 3 - 19+ 3-dose series) 1987 PNEUMOCOCCAL VACCINE 50+ (1 of 1 - PCV) 2018 ZOSTER VACCINE (1 of 2) 2018 DEPRESSION SCREENING 10/14/2024 COVID-19 VACCINE (1 - 2023-2 5 season) 2025 INFLUENZA VACCINE (#1) 2025 HIB VACCINE Aged Out No longer eligi ble based on patient's age to complete this topic HPV VACCINE Aged Out No longer eligi ble based on patient's age to complete this topic MENINGOCOCCAL (Group B) VACC INE SHARED DECISION-MAKING Aged Out No longer eligibl e based on patient's age to complete this topic MENINGOCOCCAL GROUPS A/C/Y/W VACCINE Aged Out No longer eligible b ased on patient's age to complete this topic Insurance
== END 2025-07-14 13:47 | disposition home or self-care (01) ==
LOC: ANHIMG 13:48
PROVIDERS: Visit Provider Orthopaedic Surgery
DX: Z96.652 Presence of left artificial knee joint (principal); Z96.651 Presence of right artificial knee joint
CPT/HCPCS: 73562